=== PATIENT | female | born 1985 | race Caucasian/White ===

== ENCOUNTER 2024-04-26 13:07 | Outpatient (CLI) | payer OTHER, SELFPAY ==
--- NOTE | ~2024-04-26 | MMUS_ITS ---
EXAMINATION: MM diagnostic stevie BI w ronnie, US breast BI complete HISTORY: Palpable left breast lump. TECHNIQUE: Additional 3-D tomosynthesis images of the breasts were performed and synthetic 2-D images were generated. CAD analysis was submitted and interpreted. High resolution bilateral complete breas t ultrasound was performed. COMPARISON: None BREAST PARENCHYMAL COMPOSITION: Dense: The breasts are extremely dense, which lowers the sensitivity of mammography. FINDINGS: MAMMOGRAPHIC FINDINGS: There are no suspicious masses, calcifications or architectural distortion in either breast to sugges t malignancy. ULTRASOUND: Complete bilateral US of all 4 quadrants of the breasts and retroareolar region was reviewed. Right breast: At 12:00, 5 cm from the nipple, there is an irregular shaped hypoechoic mass measuring 11 mm greatest dimension with parallel orientation, mixed posterior attenuation and no internal vascu larity. There are multiple cysts of the right breast which are benign. Left breast: Multiple cysts of the left breast which are benign. No sonographic evidence for malignan cy in the left breast. IMPRESSION: 1. Irregular shaped hypoechoic 11 mm right breast mass at 12:00, 5 cm from the nipple. No evidence fo r malignancy in the left breast. 2. Ultrasound-guided right breast biopsy recommended. BI-RADS category 4, suspicious findings. Reviewed, dictated and finalized at location B. IMPRESSION: 1. Irregular shaped hypoechoic 11 mm right breast mass at 12:00, 5 cm from the nipple. No evidence for malignancy in the left breast. 2. Ultrasound-guided right breast biopsy recommended. BI-RADS category 4, suspicious findings.
== END 2024-04-26 13:08 | disposition home or self-care (01) ==
PROVIDERS: Visit Provider Obstetrics & Gynecology
DX: N63.20 Unspecified lump in the left breast, unspecified quadrant (principal); R92.8 Other abnormal and inconclusive findings on diagnostic imaging of breast
CPT/HCPCS: 76641; 77062; 77066; G0279

== ENCOUNTER 2024-06-14 07:54 | Outpatient (CLI) | payer OTHER, SELFPAY ==
--- NOTE | ~2024-06-14 | MMUS_ITS ---
MM post biopsy invasive RT, US breast biopsy RT w image EXAMINATION: US GUIDED NEEDLE BIOPSY WITH VACUUM ASSISTANCE DATE: 06/14/2024 10:24 CDT INDICATION: Right breast mass seen on prior examination. Ultrasound-guided core biopsy is requested to evaluate for malignancy. BREAST PARENCHYMAL COMPOSITION: Dense: The breasts are extremely dense, which lowers the sensitivity of mammography. TECHNIQUE AND FINDINGS: The risks and potential benefits of the procedure were discussed with the patient, and written inform ed consent was obtained. After sterile preparation of the right breast, 1% lidocaine was utilized fo r local anesthesia. 1% lidocaine with epinephrine was used for deep anesthesia. A 10G vacuum-assisted biopsy gun needle was advanced through to the outer edge of the region of inter est from a superior approach utilizing sonographic guidance. A total of for tissue core samples were obtained through the lesion. An Inrad tissue marker clip was then placed at the biopsy site. Hemost asis was achieved. The patient tolerated procedure well and there was no evidence of immediate complication. The patien t was given verbal instructions partly is from the department. Right breast mammograms to document t issue marker clip placement. The tissue samples were submitted to surgical pathology for histologic a nalysis. IMPRESSION: 1. Successful ultrasound-guided vacuum-assisted biopsy of right breast mass with post procedure mamm ogram for marker placement. Please refer to pathology report for histologic analysis. Reviewed, dictated and finalized at location B. IMPRESSION: 1. Successful ultrasound-guided vacuum-assisted biopsy of right breast mass wi th post procedure mammogram for marker placement. Please refer to pathology rep ort for histologic analysis.
== END 2024-06-14 07:55 | disposition home or self-care (01) ==
PROVIDERS: Visit Provider Obstetrics & Gynecology
DX: N63.10 Unspecified lump in the right breast, unspecified quadrant (principal)
CPT/HCPCS: 19083; 88305; A4648

== ENCOUNTER 2025-06-13 13:27 | Outpatient (CLI) | payer OTHER, SELFPAY ==
--- NOTE | ~2025-06-13 | MR_ITS ---
EXAMINATION: MR breast BI wo/w con INDICATION: 39-year-old female with Extreme dense breast tissue bilaterally on mammogram. She presents for short-term follow-up of probably benign scattered focal areas of enhancement bilaterally. Prior history of right breast biopsy that yielded benign pathology in May 2024. TECHNIQUE: Axial VIBRANT pre and dynamic post contrast, Sagittal VIBRANT post contrast, Axial T2 STIR ASSET COMPARISON: 11/01/2024, mammogram 04/26/2024 CONTRAST: Multihance, 13 cc BREAST COMPOSITION: Extreme fibroglandular tissue FINDINGS: RIGHT BREAST: There is moderate background parenchymal nodular enhancement pattern which is unchanged. No abnormal enhancement is present after contrast administration. No pathologically enlarged axillary or internal mammary lymph nodes are identified. LEFT BREAST: There is moderate background parenchymal nodular enhancement pattern which is unchanged. No abnormal enhancement is present after contrast administration. No pathologically enlarged axillary or internal mammary lymph nodes are identified. IMPRESSION: 1. No MRI evidence of malignancy in either breast. 2. Moderate background parenchymal nodular enhancement pattern decreased the sensitivity of MRI. 3. The chest wall and axillary portion of the examination unremarkable. BI-RADS Category 2: Benign finding(s). Reviewed, dictated and finalized at location B. IMPRESSION: 1. No MRI evidence of malignancy in either breast. 2. Moderate background parenchymal nodular enhancement pattern decreased the se nsitivity of MRI. 3. The chest wall and axillary portion of the examination unremarkable. BI-RADS Category 2: Benign finding(s).
--- OUTSIDE RECORDS SUMMARY | 2025-06-13 13:37 | XMS_ITS | Clinical Summary ---
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 Active oxyCODONE-aceta minophen (PERCOCET) 5-325 mg tablet Take 2 Tablet by mouth every 4 hours as needed for Pain, Moderate (For Pain Scale 4-6). Max Daily Amount: 12 Tablet 30 Tablet 0 07/16/2015 Active sennosides-docu sate sodium (SENNA-S) 8.6-50 mg tablet Take 1 Tablet by mouth 1 time daily as needed for Constipation. 20 Tablet 0 07/16/2015 Active ibuprofen (MOTRIN) 600 mg tablet Take 1 Tablet (600 mg) by mouth every 6 hours as needed for Pain. 40 Tablet 0 07/16/2015 Active Active Problems Problem Noted Date Diagnosed Date VAVD 07/14, girl 07/13/2015 Immunizations Immunization Administration Dates Next Due INFLUENZA VACCINE QUADRIVALENT 3 YR UP PF IM Social History Tobacco Use Types Packs/Day Years Used Date Smoking Tobacco: Never Alcohol Use Standard Drinks/Week Comments No 0 (1 standard drink = 0.6 oz pur e alcohol) Comments No Sex and Gender Information Value Date Recorded Sex Assigned at Not on file Legal Sex Female 7:42 PM CDT Gender Identity Not on file Sexual Orientation Not on file Last Filed Vital Signs Vital Sign Reading Time Taken Comments Blood Pressure 131/90 07/16/2015 9:19 AM CDT Pulse 93 07/16/2015 9:19 AM CDT Temperature 36.8 C (98.2 F) 07/16/2015 9:19 AM CDT Respiratory Rate 16 07/16/2015 9:19 AM CDT Oxygen Saturation 100% 07/13/2015 9:05 PM CDT Inhaled Oxygen Concentration - - Weight 77.1 kg (170 lb) 07/13/2015 7:08 PM CDT Height 170.2 cm (5' 7) 07/13/2015 7:08 PM CDT Body Mass Index 26.63 07/13/2015 7:08 PM CDT Plan of Treatment Health Maintenance Due Date Last Done Comments DTAP/TDAP/TD VACCINES (1 - Tdap) 12/23/2006 HEPATITIS B VACCINES (1 of 3 - 19+ 3-dose series) 05/2007 HPV/Cotest (21-29) 12/23/2008 HPV VACCINES (1 - 3-dose SCDM series) 12/23/2014 CERVICAL CANCER SCREENING 12/23/2017 HPV/Cotest (30-65) 12/23/2017 PAP SMEAR 12/23/2017 INFLUENZA VACCINE (#1) 2025 07/15/2015 Insurance Advance Directives For more information, please contact: [phone] * Full Code (Latest Code Status on File) Date Activated Date Inactivated Comments 07/14/2015 5:01 AM 07/16/2015 12:42 PM * Full Code Date Activated Date Inactivated Comments 07/13/2015 8:36 PM 07/14/2015 5:01 AM
== END 2025-06-13 13:28 | disposition home or self-care (01) ==
PROVIDERS: PCP Physician Assistant; Visit Provider Surgery
DX: R92.8 Other abnormal and inconclusive findings on diagnostic imaging of breast (principal); R92.343 Mammographic extreme density, bilateral breasts; N63.10 Unspecified lump in the right breast, unspecified quadrant
CPT/HCPCS: 77049; A9577; C8908